=== PATIENT | female | born 1950 | race American Indian/Alaskan Native ===

== ENCOUNTER 2017-02-18 17:43 | Emergency (ER) | payer OTHER, MEDICAID ==
[2017-02-18 17:54] VITALS: BP 172/75
[2017-02-18] MEDS ORDERED: TYLENOL #3 PO ONE (19:34)
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
== END 2017-02-18 19:59 | disposition home or self-care (01) ==
LOC: ED 17:43
DX: M79.1 Myalgia (principal); I10 Essential (primary) hypertension; F17.200 Nicotine dependence, unspecified, uncomplicated; Z90.710 Acquired absence of both cervix and uterus; Z88.0 Allergy status to penicillin; Z88.6 Allergy status to analgesic agent; Z88.2 Allergy status to sulfonamides; Z88.8 Allergy status to other drugs, medicaments and biological substances; V49.49XA Driver injured in collision with other motor vehicles in traffic accident, initial encounter; Y92.488 Other paved roadways as the place of occurrence of the external cause; Y93.89 Activity, other specified; Y99.8 Other external cause status
CPT/HCPCS: 99282

== ENCOUNTER 2020-01-13 14:30 | Inpatient (IN) | payer MEDICAID, MEDICARE ==
[2020-01-13] MEDS ORDERED: SODIUM CHLORIDE 0.9% 1000 ML 1,000 ML IV ONE (15:40)
[2020-01-13] MEDS ORDERED: MORPHINE 4 MG/1 ML INJ IV ONE ×3 (15:40→21:13)
[2020-01-13] MEDS ORDERED: ONDANSETRON 4 MG/2 ML INJ IV ONE ×2 (15:40→18:30)
--- NOTE | 2020-01-13 15:46 | Emergency Department Report ---
ED General Adult HPI - General Chief complaint: Dyspnea/Respdistress Stated complaint: EXPOSURE TO COVID 19 Time Seen by Provider: 01/13/20 14:50 Source: EMS Mode of arrival: Stretcher Limitations: No Limitations - History of Present Illness Initial comments: The patient presents to the emergency department with a chief complaint of nausea, vomiting, diarrhea that has been present since the 02 of January. Patient states that she was seen by her primary care physician last week and was given suppository Phenergan and some other medication by mouth to help with the nausea and vomiting but it has not helped. Patient also complains of diffuse abdominal pain that she describes a sharp in nature. Patient also complains of a cough a fever for the last 2 to 3 days and denies any recent travel or any contacts with people who are positive for Covid 19. -: Sudden Location: abdomen Radiation: non-radiation Severity scale (0 -10): 5 Quality: sharp Consistency: constant Improves with: none Worsens with: none Associated Symptoms: denies other symptoms Treatments Prior to Arrival: none - Related Data Home Medications Medication Instructions Recorded Confirmed Last Taken Metoprolol [Lopressor TAB] 50 mg PO TID 05/06/15 03/20/18 03/18/18 150 mg Potassium Chloride [K-Dur] 20 meq PO QDAY 03/19/18 03/19/18 03/18/18 hydrALAZINE [Apresoline] 25 mg PO Q8HR 03/19/18 03/19/18 03/18/18 10:00 25 hydroCHLOROthiazide [HCTZ] 25 mg PO QDAY 03/19/18 03/19/18 03/18/18 10:00 raNITIdine HCl [Zantac] 300 mg PO DAILY 03/19/18 03/20/18 03/18/18 Allergies Allergy/AdvReac Type Severity Reaction Status Date / Time ibuprofen Allergy Swelling Verified 05/06/15 10:38 Sulfa (Sulfonamide Allergy Swelling Verified 06/17/15 12:41 Antibiotics) aspirin AdvReac Vomiting Verified 05/06/15 10:38 Penicillins AdvReac Vomiting Verified 05/06/15 10:38 tramadol AdvReac Nausea Verified 05/06/15 10:38 ED Review of Systems ROS: Stated complaint: EXPOSURE TO COVID 19 Other details as noted in HPI Constitutional: denies: chills, fever Eyes: denies: eye pain, eye discharge, vision change ENT: denies: ear pain, throat pain Respiratory: denies: cough, shortness of breath, wheezing Cardiovascular: denies: chest pain, palpitations Endocrine: no symptoms reported Gastrointestinal: abdominal pain, nausea, vomiting. denies: diarrhea Genitourinary: denies: urgency, dysuria, discharge Musculoskeletal: denies: back pain, joint swelling, arthralgia Skin: denies: rash, lesions Neurological: denies: headache, weakness, paresthesias Psychiatric: denies: anxiety, depression Hematological/Lymphatic: denies: easy bleeding, easy bruising ED Past Medical Hx - Past Medical History Previous Medical History?: Yes Hx Hypertension: Yes Hx Congestive Heart Failure: No Hx Diabetes: No Hx GERD: Yes Hx Asthma: No Hx COPD: No Additional medical history: Bronchitis - Surgical History Past Surgical History?: Yes Additional Surgical History: hysterectomy - Social History Smoking Status: Current Every Day Smoker - Medications Home Medications: Home Medications Medication Instructions Recorded Confirmed Last Taken Type Metoprolol [Lopressor TAB] 50 mg PO TID 05/06/15 03/20/18 03/18/18 History 150 mg Potassium Chloride [K-Dur] 20 meq PO QDAY 03/19/18 03/19/18 03/18/18 History hydrALAZINE [Apresoline] 25 mg PO Q8HR 03/19/18 03/19/18 03/18/18 10:00 History 25 hydroCHLOROthiazide [HCTZ] 25 mg PO QDAY 03/19/18 03/19/18 03/18/18 10:00 History raNITIdine HCl [Zantac] 300 mg PO DAILY 03/19/18 03/20/18 03/18/18 History ED Physical Exam - General Limitations: No Limitations General appearance: alert, in no apparent distress - Head Head exam: Present: atraumatic, normocephalic - Eye Eye exam: Present: normal appearance - ENT ENT exam: Present: mucous membranes dry - Neck Neck exam: Present: normal inspection - Respiratory Respiratory exam: Present: normal lung sounds bilaterally. Absent: respiratory distress, wheezes - Cardiovascular Cardiovascular Exam: Present: normal rhythm, tachycardia. Absent: systolic murmur, diastolic murmur, rubs, gallop - GI/Abdominal GI/Abdominal exam: Present: soft, tenderness (diffusely ttp), normal bowel sounds. Absent: distended - Extremities Exam Extremities exam: Present: normal inspection - Back Exam Back exam: Present: normal inspection - Neurological Exam Neurological exam: Present: alert, oriented X3, CN II-XII intact. Absent: motor sensory deficit - Psychiatric Psychiatric exam: Present: normal affect, normal mood - Skin Skin exam: Present: warm, dry, intact, normal color. Absent: rash ED Course Vital Signs 01/13/20 01/13/20 01/13/20 15:37 17:01 19:43 Temperature 98.8 F 98.5 F Pulse Rate Respiratory 14 Rate Blood Pressure 146/61 Blood Pressure 146/61 [Right] O2 Sat by Pulse 98 Oximetry 01/13/20 23:30 Temperature 98.4 F Pulse Rate 88 Respiratory 16 Rate Blood Pressure Blood Pressure 146/66 [Right] O2 Sat by Pulse 99 Oximetry ED Medical Decision Making - Lab Data Result diagrams: 01/13/20 16:28 01/13/20 16:28 Lab Results 01/13/20 01/13/20 Range/Units 16:28 16:28 WBC 12.4 H (4.5-11.0) K/mm3 RBC 5.38 H (3.65-5.03) M/mm3 Hgb 13.4 (10.1-14.3) gm/dl Hct 42.3 (30.3-42.9) % MCV 79 (79-97) fl MCH 25 L (28-32) pg MCHC 32 (30-34) % RDW 16.9 H (13.2-15.2) % Plt Count 296 (140-440) K/mm3 Lymph % (Auto) 25.2 (13.4-35.0) % Evangeline % (Auto) 4.8 (0.0-7.3) % Eos % (Auto) 0.8 (0.0-4.3) % Baso % (Auto) 1.0 (0.0-1.8) % Lymph # 3.1 (1.2-5.4) K/mm3 Evangeline # 0.6 (0.0-0.8) K/mm3 Eos # 0.1 (0.0-0.4) K/mm3 Baso # 0.1 (0.0-0.1) K/mm3 Seg Neutrophils % 68.2 (40.0-70.0) % Seg Neutrophils # 8.4 H (1.8-7.7) K/mm3 Sodium 139 (137-145) mmol/L Potassium 3.5 L (3.6-5.0) mmol/L Chloride 100.9 (98-107) mmol/L Carbon Dioxide 22 (22-30) mmol/L Anion Gap 20 mmol/L BUN 6 L (7-17) mg/dL Creatinine 1.0 (0.7-1.2) mg/dL Estimated GFR > 60 ml/min BUN/Creatinine Ratio 6 % Glucose 90 (65-100) mg/dL Calcium 9.8 (8.4-10.2) mg/dL Total Bilirubin 0.20 (0.1-1.2) mg/dL AST 14 (5-40) units/L ALT < 5 L (7-56) units/L Alkaline Phosphatase 73 (35-129) units/L Total Protein 7.1 (6.3-8.2) g/dL Albumin 4.1 (3.9-5) g/dL Albumin/Globulin Ratio 1.4 % Lipase 28 (13-60) units/L - Radiology Data Radiology results: report reviewed - Medical Decision Making Patient seen by Dr. Hwang the vascular surgeon and plan of care was discussed with patient IV antibiotics will be started and reevaluation of the patient will be done for her aneurysm Critical Care Time: Yes Critical care time in (mins) excluding proc time.: 45 Critical care attestation.: If time is entered above; I have spent that time in minutes in the direct care of this critically ill patient, excluding procedure time. 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
[2020-01-13 16:38] LABS: Basophils # (Auto) 0.1 K/mm3 (0.0-0.1); Eosinophils # (Auto) 0.1 K/mm3 (0.0-0.4); Eosinophils % (Auto) 0.8 % (0.0-4.3); Hematocrit 42.3 % (30.3-42.9); Hemoglobin 13.4 gm/dl (10.1-14.3); Lymphocytes # (Auto) 3.1 K/mm3 (1.2-5.4); Lymphocytes % (Auto) 25.2 % (13.4-35.0); Mean Corpuscular HGB Conc 32 % (30-34); Mean Corpuscular Volume 79 fl (79-97); Monocytes # (Auto) 0.6 K/mm3 (0.0-0.8); Monocytes % (Auto) 4.8 % (0.0-7.3); Platelet Count 296 K/mm3 (140-440); Red Blood Count 5.38 M/mm3 (3.65-5.03); Red Cell Distribution Width 16.9 % (13.2-15.2)
[2020-01-13 17:08] LABS: Albumin 4.1 g/dL (3.9-5); BUN/Creatinine Ratio 6; Blood Urea Nitrogen 6 mg/dL (7-17); Calcium 9.8 mg/dL (8.4-10.2); Hemolysis Index 21
[2020-01-13 17:13] LABS: Alanine Aminotransferase < 5 units/L (7-56)
--- NOTE | 2020-01-13 18:13 | XRay Report ---
CHEST 1 VIEW INDICATION: cough. COMPARISON: 03/18/2018 FINDINGS: Support devices: None. Heart: There has been interval CABG. Heart size is normal. Lungs/Pleura: No acute pulmonary or pleural findings. IMPRESSION: 1. No acute findings. Signer Name: Beto Rader MD Signed: 01/13/2020 6:08 PM Workstation Name: [id number]
--- NOTE | 2020-01-13 20:59 | Cat Scan Report ---
CT ABDOMEN AND PELVIS WITH IV CONTRAST INDICATION: MAIN: abdominal pain with n/v/d 100cc of omnipaque 300 bolus . COMPARISON: CT 06/17/2015. TECHNIQUE: All CT scans at this facility use dose modulation, automated exposure control, iterative reconstructi on or weight based dosing, when appropriate, to reduce radiation dose to as low as reasonably achieva ble. FINDINGS: Lung Bases: No significant abnormality. Skeletal System: No acute abnormality. ABDOMEN: Liver: No significant abnormality. Gallbladder: No significant abnormality. Bile Ducts: No significant abnormality. Pancreas: No significant abnormality. Spleen: No significant abnormality. Adrenals: No significant abnormality. Right Kidney: Numerous cortical cysts are again noted. Left Kidney: Numerous cortical cysts are again noted. Upper GI tract: No significant abnormality. Lymph Nodes: No significant adenopathy. Aorta: Advanced atherosclerotic changes. Additional Findings: There is focal aneurysmal dilatation of the superior mesenteric artery (axial se lynnette 2 images 34-37). This measures 1.3 cm on sagittal image 62. This is new since the prior. More di stal superior mesenteric artery appears unremarkable aside from minimal atherosclerotic calcification . PELVIS: Colon: No acute abnormality. Urinary Bladder and Distal Ureters: No significant abnormality. Appendix: Not visualized. Lymph Nodes: No significant adenopathy. Additional Findings: There is advanced atherosclerotic calcification in the bilateral common iliac ar teries. IMPRESSION: 1. There is focal aneurysmal dilatation and irregularity of the superior mesenteric artery approxima tely 3 cm distal to its takeoff from the aorta. This is new since the prior exam and is of uncertain chronicity. This does not appear to be a simple aneurysm and could be due to focal dissection or pene trating ulcer. No free fluid or retroperitoneal/intraperitoneal hematoma is seen and the more distal superior mesenteric artery shows no significant abnormality. Conventional or CT angiography may be us eful to better characterize this. I see no evidence of bowel ischemia. 2. Incidental findings, as above. Signer Name: Beto Rader MD Signed: 01/13/2020 8:55 PM Workstation Name: [id number]
--- NOTE | 2020-01-14 00:20 | Consultation ---
History of Present Illness - Reason for Consult Consult date: 01/14/20 Superior Mesenteric Artery Aneurysm Requesting physician: FRENCH NUNEZ - History of Present Illness The patient is a 69-year-old female who presented to the emergency department with complaints of nausea, vomiting, diarrhea, and abdominal pain that began on January 02. She states that she has had episodes similar to this that she believes began occurring in 1987 approximately 2 years after hysterectomy. She states that at that time she had approximately 2 episodes per year that always involved abdominal pain and vomiting and occasionally the diarrhea was associated. Over the last 3 years the episodes have progressively worsened and she has experienced a minimum of 4 episodes per year. She feels as though her pain has intensified which prompted her to present to the emergency department today. Her past medical history also includes short distance claudication that has worsened over the past several years and coronary artery disease which resulted in a CABG approximately 1 year ago. She has no additional complaints at this time. Past History Past Medical History: CAD, GERD, hypertension, hyperlipidemia, PVD, other (Polycystic Kidney Disease) Past Surgical History: CABG, hysterectomy Social history: smoking Medications and Allergies Allergies Allergy/AdvReac Type Severity Reaction Status Date / Time ibuprofen Allergy Swelling Verified 05/06/15 10:38 Sulfa (Sulfonamide Allergy Swelling Verified 06/17/15 12:41 Antibiotics) aspirin AdvReac Vomiting Verified 05/06/15 10:38 Penicillins AdvReac Vomiting Verified 05/06/15 10:38 tramadol AdvReac Nausea Verified 05/06/15 10:38 Home Medications Medication Instructions Recorded Confirmed Last Taken Type Metoprolol [Lopressor TAB] 50 mg PO TID 05/06/15 03/20/18 03/18/18 History 150 mg Potassium Chloride [K-Dur] 20 meq PO QDAY 03/19/18 03/19/18 03/18/18 History hydrALAZINE [Apresoline] 25 mg PO Q8HR 03/19/18 03/19/18 03/18/18 10:00 History 25 hydroCHLOROthiazide [HCTZ] 25 mg PO QDAY 03/19/18 03/19/18 03/18/18 10:00 History raNITIdine HCl [Zantac] 300 mg PO DAILY 03/19/18 03/20/18 03/18/18 History Active Meds: Active Medications Aztreonam (Azactam/Ns 1 Gm/50 Ml) 1 gm in 50 mls @ 50 mls/hr IV Q12H FOR[facility], [facility]; Protocol Review of Systems Constitutional: no weight loss, no anorexia, no poor appetite Cardiovascular: no chest pain Respiratory: cough, shortness of breath Gastrointestinal: abdominal pain, nausea, vomiting, diarrhea, heartburn, indigestion, no hematemesis, no coffee ground emesis, no BRBPR, no melena, no hematochezia, no loss of appetite, no early satiety Exam - Constitutional Vitals: Temp Pulse Resp BP Pulse Ox 98.4 F 88 16 146/66 99 01/13/20 23:30 01/13/20 23:30 01/13/20 23:30 01/13/20 23:30 01/13/20 23:30 General appearance: Present: no acute distress - Neck Neck: Present: supple - Respiratory Respiratory effort: normal - Cardiovascular Rhythm: regular - Extremities Extremities: no ischemia, normal temperature Extremity abnormal: pulses diminished (Nonpalpable pedal pulses) - Abdominal General gastrointestinal: Present: soft, tender (Tender left lower quadrant and mid abdomen), non-distended - Rectal Rectal Exam: deferred - Musculoskeletal Musculoskeletal: strength equal bilaterally - Psychiatric Psychiatric: appropriate mood/affect, intact judgment & insight Results - Labs CBC & Chem 7: 01/13/20 16:28 01/13/20 16:28 Labs: Abnormal lab results 01/13/20 01/13/20 Range/Units 16:28 16:28 WBC 12.4 H (4.5-11.0) K/mm3 RBC 5.38 H (3.65-5.03) M/mm3 MCH 25 L (28-32) pg RDW 16.9 H (13.2-15.2) % Seg Neutrophils # 8.4 H (1.8-7.7) K/mm3 Potassium 3.5 L (3.6-5.0) mmol/L BUN 6 L (7-17) mg/dL ALT < 5 L (7-56) units/L - Imaging and Cardiology CT scan - abdomen: image reviewed (Patient has significant aortic atherosclerotic disease with occlusive disease in bilateral iliac arteries. Additionally the patient has significant atherosclerotic disease with narrowing of the abdominal aorta. The patient has an aneurysm of the mid SMA with a significant amount of stranding surrounding the aneurysm.) Assessment and Plan The patient is a 69-year-old female who presented with a history of nausea, vomiting, diarrhea, and abdominal pain. A CT scan of her abdomen and pelvis with contrast revealed a 1.3 cm aneurysm of her superior mesenteric artery. There is a significant amount of stranding around the artery which could suggest a possible infectious component versus a vasculitis. Additionally the patient could have a penetrating ulcer secondary to her atherosclerotic disease and the aneurysm may be newly formed. The patient needs a CTA of her abdomen and pelvis to help better identify the anatomy including the aneurysm and branches to plan for possible endovascular intervention. Additionally I recommend blood cultures and then infectious disease consult for possible antibiotics in case there is an infectious component involved. If there is an infectious component involved the most likely source would be the heart however if this is not infectious then she may require a rheumatology work-up to rule out a vasculitis. I discussed the possible work-up with the patient who expressed understanding and agrees with the plan.
[2020-01-14] MEDS: AZTREONAM/NS 1 GM/50 ML 1 GM/50 ML VIAL IV SCH ×2 (01:25→11:51)
[2020-01-14] MEDS ORDERED: ACETAMINOPHEN 325 MG TAB PO PRN (02:22)
--- NOTE | 2020-01-14 02:44 | History and Physical Report ---
History of Present Illness Date of examination: 01/14/20 Date of admission: 01/14/20 00:56 Chief complaint: Nausea,Vomiting and Diarrhea History of present illness: 69-year-old female presenting to the emergency room today complaining of nausea vomiting and diarrhea which is been ongoing for about a week. Patient also has associated abdominal pain. Abdominal pain is said to be generalized. No known relieving or exacerbating factor. She has also had a cough which is nonproductive, she denies any chest pain and denies any shortness of breath. She denies any sick contacts and no recent travel. She had some subjective fever at home which has since subsided. 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 Vascular surgeon has been notified and consulted by the ER physician Past History Past Medical History: CAD, GERD, hypertension, hyperlipidemia, PVD, other (Polycystic Kidney Disease) Past Surgical History: CABG, hysterectomy Social history: smoking Medications and Allergies Allergies Allergy/AdvReac Type Severity Reaction Status Date / Time ibuprofen Allergy Swelling Verified 05/06/15 10:38 Sulfa (Sulfonamide Allergy Swelling Verified 06/17/15 12:41 Antibiotics) aspirin AdvReac Vomiting Verified 05/06/15 10:38 Penicillins AdvReac Vomiting Verified 05/06/15 10:38 tramadol AdvReac Nausea Verified 05/06/15 10:38 Home Medications Medication Instructions Recorded Confirmed Last Taken Type Metoprolol [Lopressor TAB] 50 mg PO TID 05/06/15 03/20/18 03/18/18 History 150 mg Potassium Chloride [K-Dur] 20 meq PO QDAY 03/19/18 03/19/18 03/18/18 History hydrALAZINE [Apresoline] 25 mg PO Q8HR 03/19/18 03/19/18 03/18/18 10:00 History 25 hydroCHLOROthiazide [HCTZ] 25 mg PO QDAY 03/19/18 03/19/18 03/18/18 10:00 History raNITIdine HCl [Zantac] 300 mg PO DAILY 03/19/18 03/20/18 03/18/18 History Active Meds: Active Medications Acetaminophen (Tylenol) 650 mg PO Q4H PRN PRN Reason: Pain MILD(1-3)/Fever >100.5/MCGILL Aztreonam (Azactam/Ns 1 Gm/50 Ml) 1 gm in 50 mls @ 50 mls/hr IV Q12H KATHY; Protocol Last Admin: 01/14/20 01:25 Dose: 50 mls/hr Documented by: Sodium Chloride (Nacl 0.9% 1000 Ml) 1,000 mls @ 125 mls/hr IV DIRECT KATHY Vancomycin HCl 1,500 mg/ (Sodium Chloride) 530 mls @ 333.333 mls/hr IV ONCE ONE Stop: 01/14/20 04:35 Morphine Sulfate (Morphine) 2 mg IV Q4H PRN PRN Reason: Pain, Moderate (4-6) Ondansetron HCl (Zofran) 4 mg IV Q8H PRN PRN Reason: Nausea And Vomiting Sodium Chloride (Sodium Chloride Flush Syringe 10 Ml) 10 ml IV BID KATHY Sodium Chloride (Sodium Chloride Flush Syringe 10 Ml) 10 ml IV PRN PRN PRN Reason: LINE FLUSH Review of Systems Constitutional: no fever, no chills Cardiovascular: no chest pain, no palpitations Respiratory: cough, no shortness of breath Gastrointestinal: abdominal pain, nausea, vomiting, diarrhea, no BRBPR, no melena Musculoskeletal: no neck pain, no low back pain Integumentary: no rash, no pruritis Neurological: no headaches, no confusion Exam - Constitutional Vitals: Temp Pulse Resp BP Pulse Ox 98.4 F 88 16 146/66 99 01/13/20 23:30 01/13/20 23:30 01/13/20 23:30 01/13/20 23:30 01/13/20 23:30 General appearance: Present: no acute distress, well-nourished - EENT Eyes: Present: PERRL, EOM intact ENT: hearing intact, clear oral mucosa, dentition normal - Neck Neck: Present: supple, normal ROM - Respiratory Respiratory effort: normal Respiratory: bilateral: CTA - Cardiovascular Rhythm: regular Heart Sounds: Present: S1 & S2 - Extremities Extremities: no ischemia, pulses symmetrical, No edema, Full ROM Peripheral Pulses: within normal limits - Abdominal General gastrointestinal: Present: soft, tender, non-distended - Integumentary Integumentary: Absent: clear, warm, dry - Musculoskeletal Musculoskeletal: strength equal bilaterally - Psychiatric Psychiatric: appropriate mood/affect, intact judgment & insight, cooperative - Neurologic Neurologic: CNII-XII intact, moves all extremities Results - Labs CBC & Chem 7: 01/13/20 16:28 01/13/20 16:28 Labs: Abnormal lab results 01/13/20 01/13/20 Range/Units 16:28 16:28 WBC 12.4 H (4.5-11.0) K/mm3 RBC 5.38 H (3.65-5.03) M/mm3 MCH 25 L (28-32) pg RDW 16.9 H (13.2-15.2) % Seg Neutrophils # 8.4 H (1.8-7.7) K/mm3 Potassium 3.5 L (3.6-5.0) mmol/L BUN 6 L (7-17) mg/dL ALT < 5 L (7-56) units/L Assessment and Plan - Patient Problems (1) Aneurysm of superior mesenteric artery Current Visit: Yes Status: Acute Plan to address problem: Patient to be evaluated by the vascular surgeon. (2) Vasculitis Current Visit: Yes Status: Acute Plan to address problem: We will place on empiric IV antibiotics. (3) Hypertension Current Visit: No Status: Chronic Qualifiers: Hypertension type: essential hypertension Qualified Code(s): I10 - Essential (primary) hypertension Plan to address problem: Blood pressure stable. We will resume routine home medications (4) Tobacco abuse Current Visit: No Status: Chronic Plan to address problem: Counseled on quitting tobacco use. We offer nicotine patch as needed (5) DVT prophylaxis Current Visit: Yes Status: Acute Plan to address problem: Placed on SQ heparin. (6) Full code status Current Visit: Yes Status: Acute
[2020-01-14] MEDS ORDERED: VANCOMYCIN 1,500 MG in SODIUM CHLORIDE 0.9% 500 ML 500 ML IV ONE (03:00)
[2020-01-14] MEDS ORDERED: VANCOMYCIN PHARMACY TO DOSE IV SCH (03:00)
[2020-01-14] MEDS: SODIUM CHLORIDE 0.9% 1000 ML 1,000 ML IV SCH ×2 (04:42→13:17)
[2020-01-14] MEDS: ONDANSETRON 4 MG/2 ML INJ IV PRN ×3 (04:43→22:07)
[2020-01-14] MEDS: MORPHINE 2 MG/1 ML INJ IV PRN ×5 (04:43→22:07)
--- NOTE | 2020-01-14 09:38 | Progress Note ---
Assessment and Plan Given the patient's association of her abdominal pain with the ingestion of spicy food, would recommend GI consultation. To further characterize the irregularities in the proximal SMA and aorta iliac system, the patient will need a CTA of the abdomen and pelvis which is been ordered. Subjective Date of service: 01/14/20 Principal diagnosis: Abdominal pain Interval history: Patient with a history of recurrent episodic abdominal pain without relieving or aggravating factors. Patient does state that prior to this episode of abdominal pain, she believes it was triggered by ingestion of spicy food. CT of the abdomen and pelvis with IV contrast was performed which demonstrates luminal irregularities and inflammatory changes around in the proximal SMA. Additionally, the patient has extensive aortoiliac disease and short distance claudication. She has not been worked up from a vascular standpoint. Objective - Constitutional Vitals: Vital Signs - 12hr 01/13/20 01/13/20 01/14/20 23:25 23:30 04:10 Temperature 98.4 F 98.4 F Pulse Rate 88 66 Respiratory 16 19 Rate Blood Pressure 146/66 152/59 Blood Pressure 146/66 [Right] O2 Sat by Pulse 99 99 95 Oximetry 01/14/20 04:43 Temperature Pulse Rate Respiratory 20 Rate Blood Pressure Blood Pressure [Right] O2 Sat by Pulse Oximetry General appearance: Present: no acute distress - EENT Eyes: EOM intact ENT: hearing intact - Neck Neck: supple - Respiratory Respiratory effort: normal - Breasts Breasts: deferred - Gastrointestinal General gastrointestinal: Present: tender, non-distended. Absent: rigid Rectal Exam: deferred - Genitourinary Female genitourinary: deferred - Psychiatric Psychiatric: appropriate mood/affect, cooperative - Labs CBC & Chem 7: 01/13/20 16:28 01/13/20 16:28 Labs: Abnormal lab results 01/13/20 01/13/20 Range/Units 16:28 16:28 WBC 12.4 H (4.5-11.0) K/mm3 RBC 5.38 H (3.65-5.03) M/mm3 MCH 25 L (28-32) pg RDW 16.9 H (13.2-15.2) % Seg Neutrophils # 8.4 H (1.8-7.7) K/mm3 Potassium 3.5 L (3.6-5.0) mmol/L BUN 6 L (7-17) mg/dL ALT < 5 L (7-56) units/L Medications & Allergies - Medications Allergies/Adverse Reactions: Allergies ibuprofen Allergy (Verified 05/06/15 10:38) Swelling Sulfa (Sulfonamide Antibiotics) Allergy (Verified 06/17/15 12:41) Swelling aspirin Adverse Reaction (Verified 05/06/15 10:38) Vomiting Penicillins Adverse Reaction (Verified 05/06/15 10:38) Vomiting tramadol Adverse Reaction (Verified 05/06/15 10:38) Nausea Home Medications: Home Medications Medication Instructions Recorded Confirmed Last Taken Type Metoprolol [Lopressor TAB] 50 mg PO BID 05/06/15 01/14/20 1 Day Ago History ~01/13/20 hydrALAZINE [Apresoline] 25 mg PO Q8HR 03/19/18 01/14/20 1 Day Ago History ~01/13/20 hydroCHLOROthiazide [HCTZ] 25 mg PO QDAY 03/19/18 01/14/20 1 Day Ago History ~01/13/20 Omeprazole Magnesium [PriLOSEC Otc] 20 mg PO QDAY 01/14/20 01/14/20 1 Day Ago History ~01/13/20 amLODIPine [Norvasc] 10 mg PO DAILY 01/14/20 01/14/20 1 Day Ago History ~01/13/20 Active Medications: Generic Name Dose Route Start Last Admin Trade Name Freq PRN Reason Stop Dose Admin Acetaminophen 650 mg 01/14/20 02:22 Tylenol PO Q4H PRN Pain MILD(1-3)/Fever >100.5/MCGILL Heparin Sodium (Porcine) 5,000 unit 01/14/20 14:00 Heparin SUB-Q Q8HR KATHY Aztreonam 1 gm in 50 mls @ 50 mls/hr 01/14/20 00:00 01/14/20 01:25 Azactam/Ns 1 Gm/50 Ml IV 50 mls/hr Q12H KATHY Administration Protocol Sodium Chloride 1,000 mls @ 125 mls/hr 01/14/20 02:30 01/14/20 04:42 Nacl 0.9% 1000 Ml IV 125 mls/hr DIRECT KATHY Administration Vancomycin HCl 1 gm in 250 mls @ 166.667 mls/hr 01/15/20 05:00 Vancomycin/Ns 1 Gm/250 Ml IV Q24H KATHY Morphine Sulfate 2 mg 01/14/20 02:22 01/14/20 09:14 Morphine IV 2 mg Q4H PRN Administration Pain, Moderate (4-6) Ondansetron HCl 4 mg 01/14/20 02:22 01/14/20 04:43 Zofran IV 4 mg Q8H PRN Administration Nausea And Vomiting Sodium Chloride 10 ml 01/14/20 10:00 01/14/20 09:14 Sodium Chloride Flush Syringe 10 Ml IV 10 ml BID KATHY Administration Sodium Chloride 10 ml 01/14/20 02:22 01/14/20 04:43 Sodium Chloride Flush Syringe 10 Ml IV 10 ml PRN PRN Administration LINE FLUSH
[2020-01-14] MEDS: HEPARIN 5,000 UNIT/1 ML VIAL SUB-Q SCH ×2 (13:17→22:09)
--- NOTE | 2020-01-14 13:19 | Progress Note ---
Assessment and Plan Assessment and plan: --Abdominal pain/gastroenteritis IV fluids, antiemetics , pain meds and supportive care CT abdomen and pelvis findings consistent with vasculitis Vascular following, GI consulted --Aneurysm of superior mesenteric artery Current Visit: Yes Status: Acute Plan to address problem: Patient to be evaluated by the vascular surgeon. --Possible vasculitis Current Visit: Yes Status: Acute Plan to address problem: We will place on empiric IV antibiotics. --Hypertension Current Visit: No Status: Chronic Blood pressure stable. We will resume routine home medications -- Tobacco abuse Current Visit: No Status: Chronic Counseled on quitting tobacco use. We offer nicotine patch as needed -- DVT prophylaxis Current Visit: Yes Status: Acute Placed on SQ heparin. -- Full code status Current Visit: Yes Status: Acute We will closely monitor the patient and adjust management as needed Plan of care reviewed with the patient and her nurse Affiliate Manager recommendations noted and appreciated History Interval history: Patient seen and examined at the bedside Patient's chart, medications and other records reviewed Patient was admitted through emergency room with history of nausea vomiting and diarrhea Patient says she feels slightly better still has some nausea and vague abdominal pain, diarrhea improved Patient is alert awake oriented Not in acute distress Vital signs reviewed Hospitalist Physical - Constitutional Vitals: Temp Pulse Resp BP Pulse Ox 98.3 F 71 20 146/58 98 01/14/20 11:39 01/14/20 11:39 01/14/20 11:39 01/14/20 11:39 01/14/20 11:39 General appearance: Present: no acute distress, mild distress - EENT Eyes: Present: PERRL, EOM intact - Neck Neck: Present: supple, normal ROM - Respiratory Respiratory effort: normal Respiratory: bilateral: diminished, negative: rales, rhonchi, wheezing - Cardiovascular Rhythm: regular Heart Sounds: Present: S1 & S2 - Extremities Extremities: no ischemia, No edema - Abdominal General gastrointestinal: soft, non-tender, non-distended, normal bowel sounds - Integumentary Integumentary: Present: clear, warm - Psychiatric Psychiatric: appropriate mood/affect, cooperative - Neurologic Neurologic: moves all extremities RICHY score - Richy Score Age > 65: (0) No Aspirin use within the Past 7 Days: (0) No 3 or more CAD Risk Factors: (0) No 2 or more Angina events in past 24 hrs: (1) Yes Known CAD with more than 50% Stenosis: (0) No Elevated Cardiac Markers: (0) No ST Deviation Greater than 0.5mm: (0) No RICHY Score: 1 Results - Labs CBC & Chem 7: 01/13/20 16:28 01/13/20 16: Labs: Laboratory Last Values WBC 12.4 K/mm3 (4.5-11.0) H 01/13/20 16: RBC 5.38 M/mm3 (3.65-5.03) H 01/13/20 16: Hgb 13.4 gm/dl (10.1-14.3) 01/13/20 16: Hct 42.3 % (30.3-42.9) 01/13/20 16: MCV 79 fl (79-97) 01/13/20 16: MCH 25 pg (28-32) L 01/13/20 16: MCHC 32 % (30-34) 01/13/20: RDW 16.9 % (13.2-15.2) H 01/13/20 16: Plt Count 296 K/mm3 (140-440) 01/13/20 16: Lymph % (Auto) 25.2 % (13.4-35.0) 01/13/20 16: [place] % (Auto) 4.8 % (0.0-7.3) 01/13/20 16: Eos % (Auto) 0.8 % (0.0-4.3) 01/13/20 16: Baso % (Auto) 1.0 % (0.0-1.8) 01/13/20 16: Lymph # 3.1 K/mm3 (1.2-5.4) 01/13/20 16: [place] # 0.6 K/mm3 (0.0-0.8) 01/13/20 16: Eos # 0.1 K/mm3 (0.0-0.4) 01/13/20 16: Baso # 0.1 K/mm3 (0.0-0.1) 01/13/20 16: Seg Neutrophils % 68.2 % (40.0-70.0) 01/13/20 16: Seg Neutrophils # 8.4 K/mm3 (1.8-7.7) H 01/13/20 16:28 Sodium 139 mmol/L (137-145) 01/13/20 16:28 Potassium 3.5 mmol/L (3.6-5.0) L 01/13/20 16:28 Chloride 100.9 mmol/L (98-107) 01/13/20 16:28 Carbon Dioxide 22 mmol/L (22-30) 01/13/20 16:28 Anion Gap 20 mmol/L 01/13/20 16:28 BUN 6 mg/dL (7-17) L 01/13/20 16:28 Creatinine 1.0 mg/dL (0.7-1.2) 01/13/20 16:28 Estimated GFR > 60 ml/min 01/13/20 16:28 BUN/Creatinine Ratio 6 % 01/13/20 16:28 Glucose 90 mg/dL (65-100) 01/13/20 16:28 Lactic Acid 1.30 mmol/L (0.7-2.0) 01/14/20 00:45 Calcium 9.8 mg/dL (8.4-10.2) 01/13/20 16:28 Total Bilirubin 0.20 mg/dL (0.1-1.2) 01/13/20 16:28 AST 14 units/L (5-40) 01/13/20 16:28 ALT < 5 units/L (7-56) L 01/13/20 16:28 Alkaline Phosphatase 73 units/L (35-129) 01/13/20 16:28 Total Protein 7.1 g/dL (6.3-8.2) 01/13/20 16:28 Albumin 4.1 g/dL (3.9-5) 01/13/20 16:28 Albumin/Globulin Ratio 1.4 % 01/13/20 16:28 Lipase 28 units/L (13-60) 01/13/20 16:28 Microbiology: Microbiology 01/14/20 00:45 Peripheral/Venous Blood Culture - Preliminary Culture in Progress 01/13/20 Unknown Peripheral/Venous Blood Culture - Preliminary Culture in Progress Shay/IV: Voiding Method Toilet IV Catheter Type [Left Hand] INT / Saline Lock Active Medications - Current Medications Current Medications: Generic Name Dose Route Start Last Admin Trade Name Freq PRN Reason Stop Dose Admin Acetaminophen 650 mg 01/14/20 02:22 Tylenol PO Q4H PRN Pain MILD(1-3)/Fever >100.5/MCGILL Heparin Sodium (Porcine) 5,000 unit 01/14/20 14:00 01/14/20 13:17 Heparin SUB-Q 5,000 unit Q8HR KATHY Administration Aztreonam 1 gm in 50 mls @ 50 mls/hr 01/14/20 00:00 01/14/20 11:51 Azactam/Ns 1 Gm/50 Ml IV 50 mls/hr Q12H KATHY Administration Protocol Sodium Chloride 1,000 mls @ 125 mls/hr 01/14/20 02:30 01/14/20 13:17 Nacl 0.9% 1000 Ml IV 125 mls/hr DIRECT KATHY Administration Vancomycin HCl 1 gm in 250 mls @ 166.667 mls/hr 01/15/20 05:00 Vancomycin/Ns 1 Gm/250 Ml IV Q24H [facility] Morphine Sulfate 2 mg 01/14/20 02:22 01/14/20 13:17 Morphine IV 2 mg Q4H PRN Administration Pain, Moderate (4-6) Ondansetron HCl 4 mg 01/14/20 02:22 01/14/20 11:51 Zofran IV 4 mg Q8H PRN Administration Nausea And Vomiting Sodium Chloride 10 ml 01/14/20 10:00 01/14/20 09:14 Sodium Chloride Flush Syringe 10 Ml IV 10 ml BID KATHY Administration Sodium Chloride 10 ml 01/14/20 02:22 01/14/20 04:43 Sodium Chloride Flush Syringe 10 Ml IV 10 ml PRN PRN Administration LINE FLUSH
--- NOTE | 2020-01-14 13:46 | Event Note ---
Date: 01/14/20 There was some confusion about Covid-19 exposure to the patient. However patient denied any exposure to Covid-19 patients or sick contacts . ER physicians documentation, admitting hospitalist documentation does not show History of exposure to Covid patients or sick contacts, no suspicion or indication to rule out Covid-19 I personally discussed with the patient, no exposure or sick contacts . Patient hospital sales representative in charge Ms. Tequila Andres discussed with the ER physician No risk of Covid 19., No need for isolation, no spl precautions Patient will be transferred to regular medical floor for further evaluation and management The above information was discussed with patient's nurse, charge nurse and nurse manager utilization management
--- NOTE | 2020-01-14 14:38 | Consultation ---
History of Present Illness - Reason for Consult Consult date: 01/14/20 abd pain Requesting physician: GERALDINE TAYLOR - History of Present Illness Ms. Ma is a 69-year-old woman admitted with diffuse abdominal pain nausea vomiting and diarrhea starting in January 02 and with cough and fever for the last 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 However, she has had pain that is diffuse and crampy to knifelike at times as long with nausea vomiting and diarrhea occurring intermittently since 1987. She notes that over the years the symptoms seem to be increasing in frequency and her tolerance for them is decreasing. Typically, the symptoms last 7 to 8 days and then spontaneously resolve with change in diet. She states that over the last 32 years, she has had multiple evaluations though she cannot remember what they are. She has certainly been endoscoped as well as had imaging studies, but states that she never truly got an answer except for possibly an infection. She does note that whenever she eats spicy foods, she has dyspepsia, even when not during these attacks. Bowel movements occur 3-4 times a week and are unchanged. There is no GI bleeding. Her weight has gone down 15 pounds over the last 6 months but she has been trying with dietary changes. She denies any recent travel or exposures to Covid. She denies heartburn or dysphagia. Of note, she states that she was on Zantac previously and that it seemed to help though not completely eliminate her symptoms. Meds reviewed. Past History Past Medical History: CAD, GERD, hypertension, hyperlipidemia, PVD, other (Polycystic Kidney Disease) Past Surgical History: CABG, hysterectomy Social history: smoking Medications and Allergies Allergies Allergy/AdvReac Type Severity Reaction Status Date / Time ibuprofen Allergy Swelling Verified 05/06/15 10:38 Sulfa (Sulfonamide Allergy Swelling Verified 06/17/15 12:41 Antibiotics) aspirin AdvReac Vomiting Verified 05/06/15 10:38 Penicillins AdvReac Vomiting Verified 05/06/15 10:38 tramadol AdvReac Nausea Verified 05/06/15 10:38 Home Medications Medication Instructions Recorded Confirmed Last Taken Type Metoprolol [Lopressor TAB] 50 mg PO BID 05/06/15 01/14/20 1 Day Ago History ~01/13/20 hydrALAZINE [Apresoline] 25 mg PO Q8HR 03/19/18 01/14/20 1 Day Ago History ~01/13/20 hydroCHLOROthiazide [HCTZ] 25 mg PO QDAY 03/19/18 01/14/20 1 Day Ago History ~01/13/20 Omeprazole Magnesium [PriLOSEC Otc] 20 mg PO QDAY 01/14/20 01/14/20 1 Day Ago History ~01/13/20 amLODIPine [Norvasc] 10 mg PO DAILY 01/14/20 01/14/20 1 Day Ago History ~01/13/20 Active Meds: Active Medications Acetaminophen (Tylenol) 650 mg PO Q4H PRN PRN Reason: Pain MILD(1-3)/Fever >100.5/MCGILL Heparin Sodium (Porcine) (Heparin) 5,000 unit SUB-Q Q8HR KATHY Last Admin: 01/14/20 13:17 Dose: 5,000 unit Documented by: Aztreonam (Azactam/Ns 1 Gm/50 Ml) 1 gm in 50 mls @ 50 mls/hr IV Q12H KATHY; Protocol Last Admin: 01/14/20 11:51 Dose: 50 mls/hr Documented by: Sodium Chloride (Nacl 0.9% 1000 Ml) 1,000 mls @ 125 mls/hr IV DIRECT KATHY Last Admin: 01/14/20 13:17 Dose: 125 mls/hr Documented by: Vancomycin HCl (Vancomycin/Ns 1 Gm/250 Ml) 1 gm in 250 mls @ 166.667 mls/hr IV Q24H KATHY Morphine Sulfate (Morphine) 2 mg IV Q4H PRN PRN Reason: Pain, Moderate (4-6) Last Admin: 01/14/20 13:17 Dose: 2 mg Documented by: Ondansetron HCl (Zofran) 4 mg IV Q8H PRN PRN Reason: Nausea And Vomiting Last Admin: 01/14/20 11:51 Dose: 4 mg Documented by: Sodium Chloride (Sodium Chloride Flush Syringe 10 Ml) 10 ml IV BID KATHY Last Admin: 01/14/20 09:14 Dose: 10 ml Documented by: Sodium Chloride (Sodium Chloride Flush Syringe 10 Ml) 10 ml IV PRN PRN PRN Reason: LINE FLUSH Last Admin: 01/14/20 04:43 Dose: 10 ml Documented by: Review of Systems All systems: negative (as noted.) Exam - Constitutional Vitals: Temp Pulse Resp BP Pulse Ox 98.3 F 71 20 146/58 98 01/14/20 11:39 01/14/20 11:39 01/14/20 11:39 01/14/20 11:39 01/14/20 11:39 General appearance: Present: no acute distress - EENT Eyes: Present: PERRL, EOM intact ENT: hearing intact - Neck Neck: Present: supple - Respiratory Respiratory effort: normal Respiratory: bilateral: CTA - Cardiovascular Rhythm: regular Heart Sounds: Present: S1 & S2 - Extremities Extremities: No edema - Abdominal General gastrointestinal: Present: soft, tender (Mild periumbilical). Absent: non-tender Results - Labs CBC & Chem 7: 01/13/20 16:28 01/13/20 16:28 Labs: Abnormal lab results 01/13/20 01/13/20 Range/Units 16:28 16:28 WBC 12.4 H (4.5-11.0) K/mm3 RBC 5.38 H (3.65-5.03) M/mm3 MCH 25 L (28-32) pg RDW 16.9 H (13.2-15.2) % Seg Neutrophils # 8.4 H (1.8-7.7) K/mm3 Potassium 3.5 L (3.6-5.0) mmol/L BUN 6 L (7-17) mg/dL ALT < 5 L (7-56) units/L - Imaging and Cardiology CT scan - abdomen: report reviewed Assessment and Plan 1. Abd pain -etiology unclear. Patient states that it is starting to improve spontaneously. Episodic nature is perplexing. Acid peptic disease certainly needs to be considered. The aneurysm with stranding around it may well be a factor, such as a vasculitis, and I agree with the evaluation as planned. Meantime, empiric proton pump inhibitors are appropriate. Endoscopic evaluation is not planned at present, but may be done electively on an outpatient basis. - PPI - agree with Vascular evaluation
[2020-01-14] MEDS: PANTOPRAZOLE 40 MG INJ IV SCH ×2 (15:32→22:07)
--- NOTE | 2020-01-14 18:05 | Cat Scan Report ---
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 COMPARISON: CT of abdomen and pelvis on 01/13/2020. TECHNIQUE: Routine postcontrast CT angiography of the abdomen and pelvis performed. Multiplanar/MIP /3D reformats were post-processed. All CT scans at this location are performed using CT dose reductio n for ALARA by means of automated exposure control. Percent stenosis measurements are based on criter ia similar to nascet. CONTRAST: 100 ml of Omnipaque 350 FINDINGS: CTA ABDOMEN: Abdominal Aorta: Diffuse heterogeneous atherosclerotic disease without significant stenosis. Celiac Artery: Mild atherosclerotic calcification at the origin without significant stenosis. Superior Mesenteric Artery: There is abnormal soft tissue surrounding the proximal right superior mes enteric artery most likely reflecting vasculitis. Alternatively, this could represent an intramural h ematoma. There is no significant narrowing of the SMA. Renal Arteries: Right: Significant narrowing of the proximal right renal artery of about 70%. Left: Significant narrowing of the proximal left renal artery of about 80%. Inferior Mesenteric Artery: Atherosclerosis at the origin without significant stenosis. CTA PELVIS: RIGHT: Common Iliac Artery: Atherosclerotic calcification with about 70% stenosis distally. Internal Iliac Artery: Atherosclerosis with multiple areas of about 80% stenosis. External Iliac Artery: Atherosclerosis with multiple areas of about 80% stenosis. LEFT: Common Iliac Artery: Diffuse atherosclerosis with focal areas of about 50% stenosis. Internal Iliac Artery: Diffuse atherosclerosis with multiple areas of bowel 50% stenosis. External Iliac Artery: Diffuse atherosclerosis with multiple areas of about 50% stenosis. NONTARGET STRUCTURES: ABDOMEN: GI:No significant abnormality. :Stable innumerable bilateral renal cysts. Lymphatics:No significant abnormality. PELVIS: :No significant abnormality. Osseous Structures: No significant abnormality. Additional Findings: None IMPRESSION: 1. Abnormal soft tissue around the proximal right SMA most likely represents vasculitis. Alternately, this could represent an area of intramural hematoma. There is no aneurysm or significant narrowing. More distal SMA branches appear intact. 2. Extensive atherosclerotic disease throughout the abdominal arteries with flow limiting stenosis of the bilateral proximal renal arteries. 3. Extensive atherosclerosis in the bilateral pelvic arteries with multiple areas of flow-limiting st enosis. Signer Name: Jarred Foster MD Signed: 01/14/2020 6:01 PM Workstation Name: [id number]
[2020-01-15] MEDS: AZTREONAM/NS 1 GM/50 ML 1 GM/50 ML VIAL IV SCH ×2 (00:04→12:27)
[2020-01-15] MEDS: SODIUM CHLORIDE 0.9% 1000 ML 1,000 ML IV SCH ×2 (02:02→12:00)
[2020-01-15] MEDS ORDERED: VANCOMYCIN/NS 1 GM/250 ML 1 GM/250 ML BAG IV SCH (05:00)
[2020-01-15] MEDS: HEPARIN 5,000 UNIT/1 ML VIAL SUB-Q SCH ×2 (05:27→14:22)
[2020-01-15] MEDS: MORPHINE 2 MG/1 ML INJ IV PRN ×4 (05:42→16:36)
[2020-01-15] MEDS: ONDANSETRON 4 MG/2 ML INJ IV PRN (05:42)
[2020-01-15 06:09] LABS: Basophils # (Auto) 0.1 K/mm3 (0.0-0.1); Basophils % (Auto) 1.5 % (0.0-1.8); Eosinophils # (Auto) 0.2 K/mm3 (0.0-0.4); Eosinophils % (Auto) 2.4 % (0.0-4.3); Hematocrit 37.5 % (30.3-42.9); Hemoglobin 11.8 gm/dl (10.1-14.3); Lymphocytes # (Auto) 2.5 K/mm3 (1.2-5.4); Lymphocytes % (Auto) 31.5 % (13.4-35.0); Mean Corpuscular HGB Conc 32 % (30-34); Mean Corpuscular Volume 80 fl (79-97); Monocytes # (Auto) 0.5 K/mm3 (0.0-0.8); Monocytes % (Auto) 5.9 % (0.0-7.3); Platelet Count 273 K/mm3 (140-440); Red Blood Count 4.71 M/mm3 (3.65-5.03); Red Cell Distribution Width 16.7 % (13.2-15.2)
[2020-01-15 06:14] LABS: INR 0.98 (0.87-1.13)
[2020-01-15 06:15] LABS: Partial Thromboplastin Time 33.2 Sec. (24.2-36.6)
[2020-01-15 06:29] LABS: BUN/Creatinine Ratio 12; Blood Urea Nitrogen 12 mg/dL (7-17); Hemolysis Index 2
[2020-01-15 06:40] LABS: Erythrocyte Sedimentation Rate 14 mm/Hr (0-20)
[2020-01-15] MEDS: PANTOPRAZOLE 40 MG INJ IV SCH (08:59)
[2020-01-15 12:41] VITALS: BP 143/53
--- NOTE | 2020-01-15 14:16 | Event Note ---
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 Would recommend a work up by a [employer] as an outpatient. The patient does not require any vascular surgery intervention at this time.
--- NOTE | 2020-01-15 14:51 | Progress Note ---
Assessment and Plan 1. Abd pain -etiology unclear. Improving. Episodic nature is perplexing. Acid peptic disease certainly needs to be considered. The aneurysm with stranding around it may well be a factor, such as a vasculitis, and I agree with the evaluation as planned. Meantime, empiric proton pump inhibitors are appropriate. Endoscopic evaluation is not planned at present, but may be done electively on an outpatient basis. - chronic PPI - okay to D/C from GI standpoint, and f/u as outpatient in 1 month Will sign off. Subjective Date of service: 01/15/20 Principal diagnosis: Abdominal pain Interval history: Nausea resolved. Anival po well. Abd pain improving. Objective - Constitutional Vitals: Vital Signs - 12hr 01/15/20 01/15/20 05:11 12:21 Temperature 97.6 F 98.4 F Pulse Rate 73 73 Respiratory 16 20 Rate Blood Pressure 140/53 143/53 O2 Sat by Pulse 97 95 Oximetry General appearance: Present: no acute distress - EENT Eyes: PERRL, EOM intact ENT: hearing intact - Respiratory Respiratory effort: normal - Gastrointestinal General gastrointestinal: Present: soft, tender (Minimal, epigastric) - Labs CBC & Chem 7: 01/15/20 05:25 01/15/20 05:25 Labs: Abnormal lab results 01/15/20 01/15/20 Range/Units 05:25 05:25 MCH 25 L (28-32) pg RDW 16.7 H (13.2-15.2) % Potassium 3.4 L (3.6-5.0) mmol/L C-Reactive Protein 1.80 H (0.00-1.30) mg/dL Medications & Allergies - Medications Allergies/Adverse Reactions: Allergies ibuprofen Allergy (Verified 05/06/15 10:38) Swelling Sulfa (Sulfonamide Antibiotics) Allergy (Verified 06/17/15 12:41) Swelling aspirin Adverse Reaction (Verified 05/06/15 10:38) Vomiting Penicillins Adverse Reaction (Verified 05/06/15 10:38) Vomiting tramadol Adverse Reaction (Verified 05/06/15 10:38) Nausea Home Medications: Home Medications Medication Instructions Recorded Confirmed Last Taken Type Metoprolol [Lopressor TAB] 50 mg PO BID 05/06/15 01/14/20 1 Day Ago History ~01/13/20 hydrALAZINE [Apresoline] 25 mg PO Q8HR 03/19/18 01/14/20 1 Day Ago History ~01/13/20 hydroCHLOROthiazide [HCTZ] 25 mg PO QDAY 03/19/18 01/14/20 1 Day Ago History ~01/13/20 Omeprazole Magnesium [PriLOSEC Otc] 20 mg PO QDAY 01/14/20 01/14/20 1 Day Ago History ~01/13/20 amLODIPine [Norvasc] 10 mg PO DAILY 01/14/20 01/14/20 1 Day Ago History ~01/13/20 Active Medications: Generic Name Dose Route Start Last Admin Trade Name Freq PRN Reason Stop Dose Admin Acetaminophen 650 mg 01/14/20 02:22 Tylenol PO Q4H PRN Pain MILD(1-3)/Fever >100.5/MCGILL Heparin Sodium (Porcine) 5,000 unit 01/14/20 14:00 01/15/20 14:22 Heparin SUB-Q 5,000 unit Q8HR KATHY Administration Aztreonam 1 gm in 50 mls @ 50 mls/hr 01/14/20 00:00 01/15/20 12:27 Azactam/Ns 1 Gm/50 Ml IV 50 mls/hr Q12H KATHY Administration Protocol Sodium Chloride 1,000 mls @ 125 mls/hr 01/14/20 02:30 01/15/20 12:00 Nacl 0.9% 1000 Ml IV 125 mls/hr DIRECT KATHY Administration Vancomycin HCl 1 gm in 250 mls @ 166.667 mls/hr 01/15/20 05:00 01/15/20 05:28 Vancomycin/Ns 1 Gm/250 Ml IV 166.667 mls/hr Q24H KATHY Administration Morphine Sulfate 2 mg 01/14/20 02:22 01/15/20 12:27 Morphine IV 2 mg Q4H PRN Administration Pain, Moderate (4-6) Ondansetron HCl 4 mg 01/14/20 02:22 01/15/20 05:42 Zofran IV 4 mg Q8H PRN Administration Nausea And Vomiting Pantoprazole Sodium 40 mg 01/14/20 15:00 01/15/20 08:59 Protonix IV 40 mg BID KATHY Administration Sodium Chloride 10 ml 01/14/20 10:00 01/15/20 12:30 Sodium Chloride Flush Syringe 10 Ml IV 10 ml BID KATHY Administration Sodium Chloride 10 ml 01/14/20 02:22 01/14/20 04:43 Sodium Chloride Flush Syringe 10 Ml IV 10 ml PRN PRN Administration LINE FLUSH
--- NOTE | 2020-01-15 16:59 | Discharge Summary ---
Providers - Providers Date of Admission: 01/14/20 00:56 Date of discharge: 01/15/20 Attending physician: ZENA MCGUIRE 01/14/20 00:10 Consult to Physician [CONS] Routine Comment: Dr. López spoke with Dr. Acharya @ [id number] Consulting Provider: SHON ACAHRYA Physician Instructions: Reason For Exam: aneurysm 01/14/20 09:38 Consult to Physician [CONS] Routine Comment: Consulting Provider: YAMILETH RESENDEZ Physician Instructions: Reason For Exam: abdominal pain [facility] Condition: Fair Pertinent studies: CT abdomen and pelvis CTA abdomen and pelvis Chest x-ray Hospital course: 69-year-old female presenting to the emergency room today complaining of nausea vomiting and diarrhea which is been ongoing for about a week. Patient also has associated abdominal pain. Abdominal pain is said to be generalized. No known relieving or exacerbating factor. She has also had a cough which is nonproductive, she denies any chest pain and denies any shortness of breath. She denies any sick contacts and no recent travel. She had some subjective fever at home which has since subsided. 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 Vascular evaluated the patient, recommend rheumatology consultation for further evaluation management as outpatient Patient had gastroenteritis and abdominal pain, GI has evaluated the patient, advised Protonix, advised not to take NSAID group of medications Follow-up in the office in 1 month for further evaluation and management Specialists have cleared the patient for discharge Patient feels slightly better Advised to go to the emergency room or contact MD should she have worsening symptoms Patient verbalized understanding Stable at discharge Discharge diagnosis and management; --Abdominal pain/gastroenteritis IV fluids, antiemetics , pain meds and supportive care CT abdomen and pelvis findings consistent with vasculitis Vascular following, GI consulted --Aneurysm of superior mesenteric artery Current Visit: Yes Status: Acute Plan to address problem: Patient to be evaluated by the vascular surgeon. --Possible vasculitis Current Visit: Yes Status: Acute Plan to address problem: We will place on empiric IV antibiotics. --Hypertension Current Visit: No Status: Chronic Blood pressure stable. We will resume routine home medications -- Tobacco abuse Current Visit: No Status: Chronic Counseled on quitting tobacco use. We offer nicotine patch as needed -- DVT prophylaxis Current Visit: Yes Status: Acute Placed on SQ heparin. -- Full code status Current Visit: Yes Status: Acute Stable at discharge Disposition: MILENA TO HOME OR SELFCARE Time spent for discharge: 32 min Core Measure Documentation - Palliative Care Palliative Care/ Comfort Measures: Not Applicable - Core Measures Any of the following diagnoses?: none Exam - Constitutional Vitals: Temp Pulse Resp BP Pulse Ox 98.4 F 73 20 143/53 95 01/15/20 12:21 01/15/20 12:21 01/15/20 12:21 01/15/20 12:21 01/15/20 12:21 General appearance: Present: no acute distress, well-nourished - EENT Eyes: Present: PERRL, EOM intact - Neck Neck: Present: supple, normal ROM - Respiratory Respiratory effort: normal Respiratory: bilateral: diminished, negative: rales, rhonchi, wheezing - Cardiovascular Rhythm: regular Heart Sounds: Present: S1 & S2 - Extremities Extremities: no ischemia, No edema - Abdominal General gastrointestinal: Present: soft, non-tender, non-distended, normal bowel sounds - Integumentary Integumentary: Present: clear, warm - Musculoskeletal Musculoskeletal: strength equal bilaterally - Psychiatric Psychiatric: appropriate mood/affect, cooperative - Neurologic Neurologic: CNII-XII intact, moves all extremities Plan Activity: advance as tolerated, fall precautions Diet: regular Additional Instructions: Advised to see private silverer for further evaluation of vasculitis. Follow GI per schedule in 1 mth [call the office]. Avoid NSAID group of medications [place] [Primary Care Provider] - 3-5 Days OSEAS DIAMOND MD [Referring] - 7 Days RON MUNOZ MD [Staff Physician] - 02/15/20 Prescriptions: oxyCODONE /ACETAMINOPHEN [Percocet 5/325] 1 tab PO QHS #6 tablet Pantoprazole [Protonix] 40 mg PO BID #60 tablet
[2020-01-17 16:41] LABS: Myeloperoxidase Antibody <1.0 AI (<1.0)
== END 2020-01-15 18:19 | disposition home or self-care (01) | DRG 392 ==
LOC: ED 14:30 → 3A 01-14 00:56
PROVIDERS: ADMIT Internal Medicine Geriatric Medicine; ATTEND Internal Medicine
DX: K52.9 Noninfective gastroenteritis and colitis, unspecified (principal); I72.8 Aneurysm of other specified arteries; K27.3 Acute peptic ulcer, site unspecified, without hemorrhage or perforation; I77.6 Arteritis, unspecified; Z71.6 Tobacco abuse counseling; I10 Essential (primary) hypertension; Z88.0 Allergy status to penicillin; Z88.2 Allergy status to sulfonamides; Z88.6 Allergy status to analgesic agent; K21.9 Gastro-esophageal reflux disease without esophagitis; Z90.710 Acquired absence of both cervix and uterus; F17.210 Nicotine dependence, cigarettes, uncomplicated; I25.10 Atherosclerotic heart disease of native coronary artery without angina pectoris; E78.5 Hyperlipidemia, unspecified; Z95.1 Presence of aortocoronary bypass graft
CPT/HCPCS: 36415; 71045; 74174; 74177; 80048; 80053; 82140; 83690; 85025; 85610; 85652; 85730; 86021; 86140; 87040; 96365; G0378; C9113; J1644; J2270; J2405; J3370; J7030; J7040; Q9967